=== PATIENT | male | born 1995 ===

== ENCOUNTER 2017-08-29 15:32 | Emergency (ER) | payer OTHER ==
[~2017-08-29] VITALS: Ht 177.8 cm; Wt 79.4 kg
[~2017-08-29 15:32] MED LIST: AMOX-556 PO; CHLO473M14 PO; IBUP800T37 PO; PER PO
[2017-08-29 15:43] VITALS: BP 121/90
--- NOTE | 2017-08-29 16:00 | ER Report ---
History and Physical Time Seen By MD: 16:00 Hx. of Stated Complaint: HIT HEAD WHILE SNOWBOARDING. POS LOC. HPI/ROS CHIEF COMPLAINT: Head injury HISTORY OF PRESENT ILLNESS: This is a 22-year-old male who presents to the emergency department for a head injury. Patient states that about 2 hours ago [place] edge of his snowboard fell forwards on a mogul hitting his forehead, was able to get up immediately after ski down just without further sat down and felt a little bit disoriented. Patient states that he did ski aggressively down got back up on the chair lifts and then he was making a 2nd run after the injury and had an episode of "blacking out". Patient states that he ended up skiing down the pt skilled [place] was evaluated there and was instructed to come in for further evaluation. 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 Patient states he did have one episode of vomiting following the injury but has not had any vomiting since then. He has a mild headache. Denies discharge from his ears , nose and mouth. Patient denies C-spine tenderness. Patient denies chest pain or shortness breath, aches, chills, nausea at this time. REVIEW OF SYSTEMS: Constitutional: No fever, no chills. Eyes: No discharge. ENT: No sore throat. Cardiovascular: No chest pain, no palpitations. Respiratory: No cough, no shortness of breath. Gastrointestinal: As above. Genitourinary: No hematuria. Musculoskeletal: No back pain. Skin: No rashes. Neurological: As above. Allergies: Coded Allergies: No Known Drug Allergies (Unverified , 04/09/17) Home Meds Discontinued Reported Medications Chlorhexidine Gluconate (Peridex) 0.12 % Mouthwash, 0.5 OZ PO BID 04/09/17 Ibuprofen (IBUPROFEN) 800 Mg Tablet, 1 TAB PO Q6H, TAB 04/09/17 Oxycodone/Acetaminophen (OXYCODONE/ACETAMINOPHEN 5MG/325 MG) 5 Mg/325 Mg Tab, 1- 2 TAB PO Q4H Y for PAIN 04/09/17 Amoxicillin/Potassium Clav (AUGMENTIN 500-125 TABLET) 1 Each Tablet, 1 TAB PO Q12H for 5 Days, TAB 04/09/17 Past Medical/Surgical History Patient has a past medical and surgical history of concussion, knee surgery, foot surgery, wisdom teeth extraction, tonsillectomy. Reviewed Nurses Notes: Yes Smoking Status: Never Smoker Hx Substance Use Disorder: No Hx Alcohol Use: No Constitutional Vital Sign - Last 24 Hours 08/29/17 15:43 Temp 98.7 Pulse 103 Resp 18 B/P (MAP) 121/90 Pulse Ox 95 O2 Delivery Room Air Physical Exam General Appearance: The patient is alert, has no immediate need for airway protection and no signs of toxicity. Eyes: Pupils equal and round no pallor or injection. EOMs intact. No nystagmus. ENT, Mouth: Mucous membranes are moist. Respiratory: There are no retractions, lungs are clear to auscultation. Cardiovascular: Regular rate and rhythm, no murmurs, clicks or rubs. Gastrointestinal: Abdomen is soft and non tender, no masses, bowel sounds normal. Neurological: Alert and oriented 4. Following all commands. Moving all extremities. No focal neuro deficits. Cranial nerves II through XII intact. Skin: Warm and dry, no rashes. Musculoskeletal: Neck is supple non tender. Extremities are nontender, nonswollen and have full range of motion. DIFFERENTIAL DIAGNOSIS: After history and physical exam differential diagnosis was considered for headache including but not limited to subarachnoid hemorrhage , migraine headache, tension headache and infectious causes such as meningitis, pharyngitis and sinusitis, concussion. Medical Decision Making ED Course/Re-evaluation ED Course The patient was admitted to room. A history of physical obtained. Differential diagnoses were considered. After evaluation of the patient I did recommend a head CT, however the patient elected not to proceed. I did explain to the patient that given his injury, loss of consciousness, as well as the vomiting episode it is my recommendation that he get a head CT, he still continues to decline the CT. I did have the patient sign an AMA form. Patient did leave the emergency department before getting his discharge paperwork. I did explain to the patient that he can return to the emergency department for any other concerns, worsening symptoms or persistent vomiting. Patient had no other questions or concerns. Decision to Disposition Date: Aug 29, 2017 Decision to Disposition Time: 16:28 Depart Departure Latest Vital Signs Vital Signs Date Time Temp Pulse Resp B/P (MAP) Pulse Ox O2 Delivery O2 Flow Rate FiO2 2/5/18 15:43 98.7 103 18 121/90 95 Room Air Impression: Primary Impression: Concussion Additional Impression: Left against medical advice Condition: Condition Unchanged Disposition: HOME OR SELF-CARE New Scripts No Active Prescriptions or Reported Meds Patient Instructions: Concussion (ED) Additional Instructions: You are leaving against medical advise. I do recommend a CT of your head since you have had a significant head injury, blacked out with vomiting. Even though you are leaving AMA you can always return for any other concerns or worsening symptoms. Drink plenty of water. Get plenty of rest. Take Tylenol as needed for discomfort. no snowboarding for at least 4 days. Follow up with your PCP for any other concerns. May return to the ED for worsening symptoms or any other concerns you may have. Problem Qualifiers Primary Impression: Concussion Encounter type: initial encounter Loss of consciousness presence/duration: with LOC of 30 min or less Qualified Codes: S06.0X1A - Concussion with loss of consciousness of 30 minutes or less, initial encounter MARTÍN GARCIA-BC Aug 29, 2017 16:00
== END 2017-08-29 16:27 | disposition left against medical advice (07) ==
LOC: ER 15:48
DX: S06.0X1A Concussion with loss of consciousness of 30 minutes or less, initial encounter (principal); W00.0XXA Fall on same level due to ice and snow, initial encounter; Y93.23 Activity, snow (alpine) (downhill) skiing, snowboarding, sledding, tobogganing and snow tubing
CPT/HCPCS: 99281